=== PATIENT | male | born 1935 | race Caucasian/White ===

== ENCOUNTER 2024-09-22 05:42 | Emergency (ER) | payer MEDICARE, BC ==
[2024-09-22 06:00] VITALS: BP 134/97
[2024-09-22 06:32] VITALS: PULSE 76
[2024-09-22 07:08] LABS: APPEARANCE,URINE CLEAR (CLEAR); BILIRUBIN,URINE NEGATIVE (NEGATIVE); COLOR,URINE YELLOW (YELLOW); GLUCOSE,URINE NEGATIVE (NEGATIVE); KETONES,URINE NEGATIVE (NEGATIVE); LEUKOCYTE ESTERASE,URINE NEGATIVE (NEGATIVE); NITRITE,URINE NEGATIVE (NEGATIVE); OCCULT BLOOD,URINE MODERATE (NEGATIVE); PROTEIN,URINE NEGATIVE (NEGATIVE)
[2024-09-22 07:39] LABS: BACTERIA,URINE RARE /HPF (NOT SEEN); SQUAMOUS EPITHELIAL CELLS,UR NOT SEEN /HPF (NOT SEEN); WBC,URINE 0-5 /HPF (NOT SEEN)
== END 2024-09-22 06:50 | disposition home or self-care (01) ==
LOC: VM.ED 05:42
DX: R33.9 Retention of urine, unspecified (principal); Z79.82 Long term (current) use of aspirin; Z79.899 Other long term (current) drug therapy
CPT/HCPCS: 51702; 81001; 99283

== ENCOUNTER 2025-01-08 00:20 | Emergency (ER) | payer MEDICARE, BC ==
[2025-01-08 01:24] LABS: APPEARANCE,URINE SLIGHTLY CLOUDY (CLEAR); GLUCOSE,URINE NEGATIVE (NEGATIVE); OCCULT BLOOD,URINE SMALL (NEGATIVE)
[2025-01-08 01:26] LABS: EPITHELIAL CELLS,URINE FEW
[2025-01-08 07:22] VITALS: BP 150/82; PULSE 90
== END 2025-01-08 02:14 | disposition home or self-care (01) ==
LOC: VM.ED 00:20
DX: T83.091A Other mechanical complication of indwelling urethral catheter, initial encounter (principal); T83.511A Infection and inflammatory reaction due to indwelling urethral catheter, initial encounter; N39.0 Urinary tract infection, site not specified; Z79.82 Long term (current) use of aspirin; Z79.899 Other long term (current) drug therapy
CPT/HCPCS: 51702; 81001; 87077; 87086; 87088; 87186; 99283; A9270-GY